=== PATIENT | female | born 1990 | race Caucasian/White ===

== ENCOUNTER 2017-08-01 15:52 | Outpatient (RCR) | payer BC | END 2017-08-30 | LOC: M PT 15:52 | DX: Z51.89 Encounter for other specified aftercare (principal); M53.3 Sacrococcygeal disorders, not elsewhere classified; M54.42 Lumbago with sciatica, left side ==

== ENCOUNTER 2017-09-05 12:32 | Outpatient (RCR) | payer BC | END 2017-09-29 | LOC: M PT 12:32 | DX: Z51.89 Encounter for other specified aftercare (principal); M54.42 Lumbago with sciatica, left side; M53.3 Sacrococcygeal disorders, not elsewhere classified | CPT/HCPCS: 97110 ==

== ENCOUNTER 2019-10-08 12:42 | Emergency (ER) | payer BC, MEDICAID, OTHER ==
[~2019-10-08] VITALS: Ht 160 cm; Wt 74.9 kg
[2019-10-08] MEDS ORDERED: DICL50TAB PO (12:53)
[2019-10-08] MEDS ORDERED: METH1TAB40 PO (12:53)
[2019-10-08] MEDS ORDERED: GABA-843 PO (12:53)
[2019-10-08] MEDS ORDERED: DOXY100C37 PO (12:54)
[2019-10-08] MEDS ORDERED: methylPREDNISolone 125MG 2ML VIAL IM ONE (13:45)
[2019-10-08] MEDS ORDERED: ALBUTEROL 90 MCG/ACT 8GM HFA INHALER INH ONE (13:45)
[2019-10-08] MEDS ORDERED: NORCO, ANEXSIA 5/325MG TABLET (HYDROcodone/ACETAMINOPHEN) PO ONE (13:45)
[2019-10-08] MEDS ORDERED: LIDOCAINE 5% (LIDODERM) PATCH TD ONE (13:45)
[2019-10-08] MEDS ORDERED: ONDANSETRON 4MG/2ML VIAL IV ONE (19:45)
[2019-10-08] MEDS ORDERED: MORPHINE 4 MG/ML 1ML VIAL/SYRINGE (J2270) IV ONE (19:45)
[2019-10-08] MEDS ORDERED: NS 1,000 ML IV SCH (20:00)
[2019-10-08 20:38] LABS: HCG, SERUM QUALITATIVE NEGATIVE (NEGATIVE)
[2019-10-08] MEDS ORDERED: **NOTE PATIENT COMMENT** MISC XX SCH (21:00)
[2019-10-08 22:40] VITALS: BP 125/81
--- NOTE | 2019-10-09 10:21 | REP ---
The MRI lumbar spine: 10/08/2019. Indication: Low back pain. Technique: Multiplanar short and long TR sequences of the lumbar spine were performed without IV Gadolinium. Comparison: None. Findings: There is straightening of the lumbar lordosis. No worrisome marrow or cord signal abnormalities are present. Disc dessication is present at L3/L4 and L4/L5. There is a transitional lumbosacral segment with sacralization of the L5 vertebral body. L1/L2 and L2/L3: Unremarkable. L3/L4: There is a posterior central annular fissure without maninder disc herniation. Mild diffuse disc bulge is present with mild recess and neural foraminal narrowing. L4/L5: There is a posterior central/left paracentral disc extrusion superimposed on a diffuse disc bulge with approximately 6 mm of caudal migration. There is severe left greater than right recess narrowing. Bilateral facet arthropathy is present. There is mild to moderate bilateral neural foraminal narrowing. L5/S1: Unremarkable. Impression: L4/L5 disc herniation as described with significant spinal canal narrowing. L3/L4 posterior central annular fissure and additional degenerative sequelae as described. Electronically Signed by Jamie Hooks DO 10/09/2019 10:14 A
== END 2019-10-08 22:45 | disposition short-term general hospital (02) ==
LOC: M ED 12:42
DX: G83.4 Cauda equina syndrome (principal); M51.26 Other intervertebral disc displacement, lumbar region; M54.81 Occipital neuralgia; J45.909 Unspecified asthma, uncomplicated; F17.290 Nicotine dependence, other tobacco product, uncomplicated; Z79.899 Other long term (current) drug therapy; Z79.2 Long term (current) use of antibiotics
CPT/HCPCS: 72148; 84703; 96361; 96372; 96374; 96375; 99284; J2270; J2405; J2930

== ENCOUNTER → 2020-09-14 | Outpatient (CLI) | payer OTHER ==
[~2020-09-14] MED LIST: DICL50TAB PO; DOXY1CAP62 PO; GABA-282 PO; METH-1164 PO
--- NOTE | 2020-09-18 00:39 | ECWPNPC ---
PATIENT NAME: MONICA PAREDES : 1990 GENDER: FEMALE VISIT DATE: 09/14/2020 DISCHARGE DATE: 09/14/20 1406 VISIT LOCKED DATE TIME: PHYSICIAN: PHILLIP JASSO RESOURCE: PHILLIP JASSO REASON FOR APPOINTMENT 1. LEFT SI INJECTS,FACET OR TRIGGER POINT INJ HISTORY OF PRESENT ILLNESS DEPRESSION SCREENING: PHQ-2 (2015 EDITION) LITTLE INTEREST OR PLEASURE IN DOING THINGS?NOT AT ALL FEELING DOWN, DEPRESSED, OR HOPELESS?NOT AT ALL TOTAL SCORE0 GENERAL: 29-YEAR-OLD FEMALE HERE PER REFERRAL OF ANDREW DALE TO EVALUATE PERSISTENT LEFT GREATER THAN RIGHT LOW BACK PAIN WITH LEFT LEG RADICULAR SYMPTOMS. STATES PAIN BEGAN IN JULY 2020 AFTER DOG JUMPED ON HER BACK. SHE WAS DOING WELL AFTER LUMBAR SURGERY IN OCTOBER 2019 UNTIL THIS INCIDENT. STATES PHYSICAL THERAPY HAS BEEN SOMEWHAT HELPFUL. CONTINUES TO HAVE A LOT OF LEFT LOW BACK AND LEG PAIN SINCE INJURY. REVIEWED MRI OF THE LS-SPINE. DISCUSSED TREATMENT PLAN. DENIES RECENT FEVER OR ILLNESS OR SUDDEN WEIGHT LOSS. DENIES BOWEL OR BLADDER INCONTINENCE. DENIES SADDLE PARESTHESIAS. - - - -. FALL RISK SCREENING: SCREENING ONE FALL REPORTED IN THE LAST YEAR WITHOUT INJURY. PATIENT DID NOT SEEK IMMEDIATE MEDICAL TREATMENT.. PAIN SCREENING: PATIENT HAS A COMPLAINT OF ACUTE OR CHRONIC PAIN :YES LOCATION OF PAIN:LOW BACK, LEFT HIP, LEG(S) INTENSITY OF PAIN (SCALE OF 1 TO 10):2 AVERAGE 2. WITH ACTIVITY AT THE END OF THE EVENING, IT GETS HIGH 4. WHAT DOES YOUR PAIN FEEL LIKE:CONTINOUS, SHARP, STABBING, SHOOTING DURATION:CONTINOUS, CONSTANT, AWAKENS FROM SLEEP PAIN IS INCREASED BY:ACTIVITIES, PROLONGED STANDING PAIN IS DECREASED BY:USE OF PAIN MEDICATIONS LAYING FLAT, REPOSITIONING NURSING NOTE: - - - -. PAIN CENTER INTAKE QUESTIONS: DO YOU HAVE A HISTORY OF MRSA? :NO DO YOU TAKE A BLOOD THINNERS? :NO DO YOU HAVE ANY BLEEDING DISORDERS? :NO ANY NEW NUMBNESS OR WEAKNESS IN YOUR LEGS OR ARMS? :YES LEFT LEG WEAKNESS ANY PACEMAKER,DEFIBRILLATOR, OR DORSAL COLUMN STIMULATOR? :NO DO YOU HAVE ANY RASHES OR OPEN SORES? :NO ARE YOU ALLERGIC TO IV DYE? :NO ARE YOU DIABETIC? :NO ANY NEW PROBLEMS WITH YOUR MEDICATIONS? :NO HAVE YOU RECEIVED A VACCINE IN THE PAST 30 DAYS? :YES SECOND COVID 08/18/2020 DO YOU PLAN TO RECEIVE A VACCINE IN THE NEXT 21 DAYS? :NO DO YOU NEED ANY PRESCRIPTION? :NO DO YOU TAKE ANY IMMUNOSUPPRESSIVE MEDICATIONS? :NO IS THERE A CHANCE YOU COULD BE ? :NO ARE YOU BREAST FEEDING? :NO CURRENT MEDICATIONS TAKING GABAPENTIN 300 MG CAPSULE 1 CAPSULE ORALLY TWICE DAILY TAKING PAROXETINE HCL 30 MG TABLET 2 TABLET IN THE MORNING ORALLY ONCE A DAY TAKING WELLBUTRIN 75MG ORALLY ONCE DAILY MEDICATION LIST REVIEWED AND RECONCILED WITH THE PATIENT PAST MEDICAL HISTORY ASTHMA ANXIETY MIGRAINES CAUDA EQUINA SYNDROME RADICULOPATHY LUMBAR SACROILLITIS ALLERGIES MEDICAL TAPE: RASH - SIDE EFFECTS SURGICAL HISTORY LUMBAR DISCECTOMY 10/2019 LEEP 05/05/2019 GALLBLADDER REMOVAL AGE 16 WISDOM TOOTH EXTRACTION 2015 FAMILY HISTORY FATHER: ALIVE, DIAGNOSED WITH HYPERTENSION MOTHER: ALIVE, HYPERLIPIDEMIA, ARTHRITIS SIBLINGS: ALIVE SON(S): ALIVE 2 BROTHER(S) , 1 SISTER(S) - HEALTHY. 1 SON(S) - HEALTHY. SOCIAL HISTORY GENERAL: TOBACCO USE ARE YOU A:CURRENT SMOKER ARE YOU INTERESTED IN QUITTING?READY TO QUIT PREVIOUS QUIT ATTEMPTS?YES, MORE THAN 6 MONTHS AGO. COUNSELED THE PATIENT ON TOBACCO USE, CESSATION [id number]/15/2021 HOW MANY CIGARETTES A DAY DO YOU SMOKE?6-10 LATEX QUESTIONNAIRE LATEX ALLERGY : HAVE YOU EVER DEVELOPED ANY TYPE OF REACTION AFTER HANDLING LATEX PRODUCTS SUCH RUBBER GLOVES, CONDOMS, DIAPHRAGMS, BALLOONS, SOCKS, OR UNDERWEAR?NO LATEX ALLERGY : HAVE YOU EVER DEVELOPED ANY TYPE OF REACTION DURING OR AFTER DENTAL APPOINTMENT, VAGINAL/RECTAL EXAMINATION, SURGICAL PROCEDURE, OR ANY OTHER EXPOSURE?NO LATEX RISK : HAVE YOU EVER HAD ANY DIFFICULTY BREATHING OR HIVES AFTER EATING OR HANDLING ANY FRUITS, OR VEGETABLES; SUCH KIWI, BANANAS, STONE FRUITS, OR CHESTNUTSNO LATEX RISK : DO YOU HAVE A PREVIOUS PERSONAL HISTORY OF MORE THAN NINE SURGERIES, SPINA BIFIDA, OR REPEATED CATHERIZATIONS? NO LATEX RISK : ARE YOU FREQUENTLY EXPOSED TO LATEX PRODUCTS IN YOUR OCCUPATION?NO DATE ASKED : 09/14/2020 ALCOHOL USE: OCCASIONAL- ONCE A MONTH. RECREATIONAL DRUG USE DRUG USE?NO LANGUAGE LANGUAGES SPOKEN:[place] EDUCATION LEVEL OF EDUCATION:GRADUATE LEARNING BARRIERS / SPECIAL NEEDS BARRIERS TO LEARNING?NO HEARING IMPAIRED?NO VISION IMPAIRED?YES CONTACT LENSES COGNITIVELY IMPAIRED?NO READINESS TO LEARN?YES LEARNING PREFERENCES?NO LEARNING CAPABILITIES PRESENT?NO EMOTIONAL BARRIERS?YES ANXIETY SPECIAL DEVICES?NO ROTOR WINDER NEEDED?NO HOSPITALIZATION/MAJOR DIAGNOSTIC PROCEDURE SURGERY RELATED REVIEW OF SYSTEMS CONSTITUTIONAL: ANY RECENT FEVER NO . CHILLS NO . WEIGHT CHANGE OF UNKNOWN REASONS NO . GASTROENTEROLOGY: NEW UNEXPLAINABLE CHANGES IN BOWEL CONTROL NO . CONSTIPATION NO . GENITOURINARY: ANY NEW CHANGE IN BLADDER CONTROL? NO . NEUROLOGY: NEW ONSET DIZZINESS OR NEUROLOGICAL CHANGES NOT MENTIONED NO . NEW NUMBNESS OR PAIN PATTERNS NOT MENTIONED AND PERTINENT TO TODAY'S VISIT NO . CARDIOLOGY: NEW CHEST PRESSURE NO . PATIENT DENIES NO . RESPIRATORY: UNEXPLAINABLE COUGH NO . NEW SHORTNESS OF BREATH NO . VITAL SIGNS WT 163.8 LBS, HT 53 IN, BMI 40.99 INDEX, BP 124/69 MM HG, HR 95 /MIN, RR 18 /MIN, TEMP 97.8 F, OXYGEN SAT % 96%, SAFE IN ENV? (Y/N) YES, NA INITIALS AW 1302, REVIEWED BY: DARRELL CHRISTINE MA. EXAMINATION GENERAL EXAMINATION: GENERAL ALERT,NO DISTRESS . PSYCH AFFECT NORMAL . LUNGS: LUNG SOUNDS ARE CLEAR . HEART: HEART RATE REGULAR . MUSCULOSKELETAL:SLIGHT WEAKNESS NOTED OVER LEFT LEG.. LUMBAR: TENDERNESS LEFT SIJ .POSITIVE SUNDEEP TESTING OVER LEFT LEG. NEUROLOGIC EXAM:NORMAL SENSATION TO LIGHT TOUCH LOWER EXTREMITIES . DIAGNOSTIC TESTS REVIEWEDMRI L/S SPINE-10/08/2019. ASSESSMENTS SACROILIITIS, NOT ELSEWHERE CLASSIFIED - M46.1 (PRIMARY) TREATMENT SACROILIITIS, NOT ELSEWHERE CLASSIFIED SALINE LOCK (ORDERED FOR 09/28/2020) MEDICATION: VALIUM TAB 5MG ORALLY (DIAZEPAM) (ORDERED FOR 09/28/2020) MEDICATION: OXYCODONE HCL TAB 5MG ORALLY (ORDERED FOR 09/28/2020) NOTES: LEFT SACROILIAC JOINT BLOCK. CLINICAL NOTES: PREPROCEDURE AND PROCEDURE INFORMATION PRINTED AND PROVIDED TO PATIENT. PATIENT VERBALIZED AN UNDERSTANDING. RAFAEL CHRISTINE MA. PROCEDURE CODES [id number] ESTABILISHED PATIENT [facility] CHARGE DISPOSITION & COMMUNICATION FOLLOW UP POST (REASON: LEFT SACROILIAC JOINT BLOCK ) ELECTRONICALLY SIGNED BY CAROLE ARGUELLO ON 09/17/2020 AT 10:32 AM EDT DISCLAIMER : THIS IS A VISIT SUMMARY EXTRACTED FROM THE [employer] CHART. IT IS NOT A COPY OF THE [employer] PROGRESS NOTE. [facility]
== END ==
LOC: M PAIN 13:00
PROVIDERS: ATTEND Nurse Practitioner Family
DX: M46.1 Sacroiliitis, not elsewhere classified (principal); J45.909 Unspecified asthma, uncomplicated; G43.909 Migraine, unspecified, not intractable, without status migrainosus; Z86.59 Personal history of other mental and behavioral disorders; F17.210 Nicotine dependence, cigarettes, uncomplicated; Z91.09 Other allergy status, other than to drugs and biological substances; E66.01 Morbid (severe) obesity due to excess calories; Z68.41 Body mass index [BMI] 40.0-44.9, adult; Z79.899 Other long term (current) drug therapy

== ENCOUNTER → 2020-10-07 | Outpatient (CLI) | payer OTHER | LOC: M LABSMTC 10:59 | PROVIDERS: ATTEND Anesthesiology | DX: Z11.52 Encounter for screening for COVID-19 (principal) ==

== ENCOUNTER → 2020-10-12 | Outpatient (CLI) | payer OTHER ==
[~2020-10-12] MED LIST changes: +BUPIVACAINE HCL 0.25% 30ML VIAL As Ordered ONE; +ISOVUE-M 300 61% 15ML VIAL As Ordered ONE; +LIDOCAINE 1% SDV 30ML VIAL As Ordered ONE; +TRIAMCINOLONE ACETONIDE SUSP 40 MG/ML VIAL (J3301) As Ordered ONE; +diazePAM 5MG TABLET As Ordered ONE; +diphenhydrAMINE 25MG CAP As Ordered ONE; +oxyCODONE 5MG TAB As Ordered ONE
--- NOTE | 2020-10-12 14:59 | REP ---
INDICATION: LEFT SACROILIAC JOINT BLOCK. COMPARISON: None. TECHNIQUE: Two views. 25.9 seconds of fluoroscopy time is reported. FINDINGS: A sequence of 2 last image hold fluoroscopically obtained spot radiographs of the left SI joint document needle position and contrast injection associated with injection procedure. IMPRESSION: Procedural imaging. <Electronically signed by Edi Morillo > 10/12/20 [id number]
--- NOTE | 2020-10-16 04:48 | ECWPNPC ---
PATIENT NAME: MONICA PAREDES : 1990 GENDER: FEMALE VISIT DATE: 10/12/2020 DISCHARGE DATE: 10/12/20 1420 VISIT LOCKED DATE TIME: PHYSICIAN: JEAN CARLOS FERGUSON MD RESOURCE: JEAN CARLOS FERGUSON MD REASON FOR APPOINTMENT 1. LEFT SACROILIAC JOINT BLOCK HISTORY OF PRESENT ILLNESS FALL RISK SCREENING: SCREENING ONE FALL REPORTED IN THE LAST YEAR WITHOUT INJURY, PATIENT DID NOT SEEK IMMEDIATE MEDICAL TREATMENT. PATIENT REPORTS 07/2020 AND 07/2020, DOG JUMPING ON BACK. . PAIN SCREENING: PATIENT HAS A COMPLAINT OF ACUTE OR CHRONIC PAIN :YES LOCATION OF PAIN:LOW BACK, LEFT HIP, LEG(S) INTENSITY OF PAIN (SCALE OF 1 TO 10):4 AVERAGE 3, WITH ACTIVITY AT THE END OF THE EVENING, IT GETS HIGH 6. WHAT DOES YOUR PAIN FEEL LIKE:SHARP, TENDER, SHOOTING, OTHER "FEELS LIKE A PIECE OF SHEET METAL IS BEING SLID ACROSS MY BACK." DURATION:CONTINOUS, AWAKENS FROM SLEEP PAIN IS INCREASED BY:ACTIVITIES, PROLONGED STANDING PAIN IS DECREASED BY:USE OF PAIN MEDICATIONS LAYING FLAT, REPOSITIONING PLAN/GOALS/TREATMENT/INTERVENTION/FOLLOW UP:SEE PLAN NURSING NOTE: POST PROCEDURE, DR FERGUSON ANNOUNCED THAT THE PT CAN GO HOME, Hyun HOBBS WAS NOT AVAILABLE TO SCRIBE AT THE TIME. Mike BOWSER LACING STRING CUTTER. PAIN CENTER INTAKE QUESTIONS: DO YOU HAVE A HISTORY OF MRSA? :NO DO YOU TAKE A BLOOD THINNERS? :NO DO YOU HAVE ANY BLEEDING DISORDERS? :NO ANY NEW NUMBNESS OR WEAKNESS IN YOUR LEGS OR ARMS? :YES LEFT LEG WEAKNESS ANY PACEMAKER,DEFIBRILLATOR, OR DORSAL COLUMN STIMULATOR? :NO DO YOU HAVE ANY RASHES OR OPEN SORES? :NO ARE YOU ALLERGIC TO IV DYE? :NO ARE YOU DIABETIC? :NO ANY NEW PROBLEMS WITH YOUR MEDICATIONS? :NO HAVE YOU RECEIVED A VACCINE IN THE PAST 30 DAYS? :NO DO YOU PLAN TO RECEIVE A VACCINE IN THE NEXT 21 DAYS? :NO DO YOU TAKE ANY IMMUNOSUPPRESSIVE MEDICATIONS? :NO ANY HISTORY OF SEIZURES? :NO ANY HISTORY OF CARDIAC ISSUES OR EVENTS? :NO DO YOU HAVE ANY KIDNEY OR LIVER DISEASE? :NO DO YOU HAVE SLEEP APNEA? :NO ANY RECENT HEAD INJURY? :NO DO YOU HAVE ANY NEW INFECTIONS? :NO IS THERE A CHANCE YOU COULD BE ? :NO ARE YOU BREAST FEEDING? :NO WHEN DID YOU LAST EAT? : 10/11/2020 2300 WHEN DID YOU LAST DRINK? : 10/12/20202029 WHAT DID YOU LAST DRINK? : ISIDRO NAME OF PERSON DRIVING YOU HOME? : MIRA (CAITLYN) DO YOU HAVE ANY OTHER QUESTIONS OR CONCERNS? : NO CURRENT MEDICATIONS TAKING GABAPENTIN 300 MG CAPSULE 1 CAPSULE ORALLY THREE TIMES A DAY, NOTES: 10/12/2020 06 TAKING PAROXETINE HCL 30 MG TABLET 2 TABLET IN THE MORNING ORALLY ONCE A DAY, NOTES: 10/12/2020 08 TAKING WELLBUTRIN 75MG ORALLY TWICE A DAY, NOTES: 10/12/2020 08 TAKING VITAMIN D (CHOLECALCIFEROL) 50 MCG (2000 UT) CAPSULE 1 CAPSULE ORALLY ONCE A DAY, NOTES: 10/12/2020 08 TAKING ALBUTEROL SULFATE HFA 108 (90 BASE) MCG/ACT AEROSOL SOLUTION INHALE 2 PUFFS BY MOUTH EVERY 4 HOURS NEEDED INHALATION NOT-TAKING METHOCARBAMOL 500 MG TABLET TAKE ONE AND ONE HALF TABLETS BY MOUTH EVERY 6 HOURS ORAL MEDICATION LIST REVIEWED AND RECONCILED WITH THE PATIENT PAST MEDICAL HISTORY ASTHMA ANXIETY MIGRAINES CAUDA EQUINA SYNDROME RADICULOPATHY LUMBAR SACROILLITIS ALLERGIES MEDICAL TAPE: RASH - SIDE EFFECTS SURGICAL HISTORY LUMBAR DISCECTOMY 10/2019 LEEP 05/05/2019 GALLBLADDER REMOVAL AGE 16 WISDOM TOOTH EXTRACTION 2015 SOCIAL HISTORY GENERAL: TOBACCO USE ARE YOU A:CURRENT SMOKER ARE YOU INTERESTED IN QUITTING?READY TO QUIT PREVIOUS QUIT ATTEMPTS?YES, MORE THAN 6 MONTHS AGO. COUNSELED THE PATIENT ON TOBACCO USE, CESSATION [id number]/12/2021 HOW MANY CIGARETTES A DAY DO YOU SMOKE?6-10 LATEX QUESTIONNAIRE LATEX ALLERGY : HAVE YOU EVER DEVELOPED ANY TYPE OF REACTION AFTER HANDLING LATEX PRODUCTS SUCH RUBBER GLOVES, CONDOMS, DIAPHRAGMS, BALLOONS, SOCKS, OR UNDERWEAR?NO LATEX ALLERGY : HAVE YOU EVER DEVELOPED ANY TYPE OF REACTION DURING OR AFTER DENTAL APPOINTMENT, VAGINAL/RECTAL EXAMINATION, SURGICAL PROCEDURE, OR ANY OTHER EXPOSURE?NO DATE ASKED : 09/14/2020 LATEX RISK : HAVE YOU EVER HAD ANY DIFFICULTY BREATHING OR HIVES AFTER EATING OR HANDLING ANY FRUITS, OR VEGETABLES; SUCH KIWI, BANANAS, STONE FRUITS, OR CHESTNUTSNO LATEX RISK : DO YOU HAVE A PREVIOUS PERSONAL HISTORY OF MORE THAN NINE SURGERIES, SPINA BIFIDA, OR REPEATED CATHERIZATIONS? NO LATEX RISK : ARE YOU FREQUENTLY EXPOSED TO LATEX PRODUCTS IN YOUR OCCUPATION?NO ALCOHOL USE: OCCASIONAL- ONCE A MONTH. RECREATIONAL DRUG USE DRUG USE?NO LANGUAGE LANGUAGES SPOKEN:SETS[place] EDUCATION LEVEL OF EDUCATION:GRADUATE LEARNING BARRIERS / SPECIAL NEEDS BARRIERS TO LEARNING?NO HEARING IMPAIRED?NO VISION IMPAIRED?YES CONTACT LENSES COGNITIVELY IMPAIRED?NO READINESS TO LEARN?YES LEARNING PREFERENCES?NO LEARNING CAPABILITIES PRESENT?NO EMOTIONAL BARRIERS?YES ANXIETY SPECIAL DEVICES?NO SQL PROGRAMMER ANALYST NEEDED?NO HOSPITALIZATION/MAJOR DIAGNOSTIC PROCEDURE SURGERY RELATED VITAL SIGNS WT 162.2 LBS, HT 53 IN, BMI 40.59 INDEX, BP 120/72 MM HG, HR 72 /MIN, RR 18 /MIN, TEMP 98.6 F, OXYGEN SAT % 97%, SAFE IN ENV? (Y/N) YES, NA INITIALS AW 1121, REVIEWED BY: Deny GLASS RN. EXAMINATION GENERAL EXAMINATION: THE PATIENT IS ALERT, ORIENTED TIMES THREE AND COOPERATIVE. LUNGS HAVE SOME WHEEZES BUT THE PATIENT EXPRESSED THAT IS NORMAL FOR HER AND WE AGREE ON MOVING FORWARD. HEART SHOWS REGULAR RHYTHM, NO MURMURS AND NO GALLOPS. ASSESSMENTS SACROILIITIS, NOT ELSEWHERE CLASSIFIED - M46.1 (PRIMARY) TREATMENT SACROILIITIS, NOT ELSEWHERE CLASSIFIED [facility] FLUORO GUIDANCE (PAIN)[id number] MED: PAIN BENADRYL TAB 25MG ORALLY DIPHENHYDRAMINEARTUR BOWSER 10/12/2020 12:03:13 PM > VERIFIED MAEVE RANDALL 10/12/2020 12:05:31 PM > ADMINISTERED MEDICATION: PAIN VALIUM TAB 5MG ORALLY (DIAZEPAM)JOHNATHON ACOSTA 10/12/2020 11:37:26 AM > VERIFIED MAEVE RANDALL 10/12/2020 11:46:13 AM > 1140 ADMINISTERED DILEONARDO,YOUNG 10/12/2020 11:55:35 AM > SECOND DOSE ORDERED, VERIFIED BY ARTUR MASTERS 10/12/2020 12:03:37 PM > SECOND DOSE VERIFIED MAEVE RANDALL 10/12/2020 12:05:53 PM > 2 ND DOSE ADMINISTERED MEDICATION: PAIN OXYCODONE HCL TAB 5MG ORALLY JOHNATHON ACOSTA 10/12/2020 11:37:46 AM > VERIFIED MAEVE RANDALL 10/12/2020 11:46:36 AM > 1140 ADMINISTERED SALINE MAEVE SEN 10/12/2020 12:01:00 PM > #22 SL STARTED X 1 ATTMEPT BY THIS PERSONAL PROTECTION SPECIALIST IN LEFT AC. SITE ASYMPTOMATIC, FLUSHES WELL. PATIENT TOLERATED PROCEDURE WELL. OTHERS NOTES: 10/11/20 PAT COMPLETED. MICKEY, LACING STRING CUTTER. PROCEDURES PAIN NURSING RECORD PROCEDURE IN ROOM 1305, PHYSICIAN IN ROOM 1344, START 1347, FINISH 1349, PHYSICIAN OUT OF ROOM 1350, OUT OF ROOM 1400, ECG NORMAL SINUS, PATIENT SHIELDED YES, SAFETY STRAP YES, PREP CHLOROPREP EWinsome BOWSER RN, DRESSING TEGADERM DR. FERGUSON LOC: 1. ALERT, ORIENTED, ARTUR BOWSER 10/12/2020 1:48:16 PM > RESP: 1. REGULAR, NO DYSPNEA, ARTUR BOWSER 10/12/2020 1:48:19 PM > COLOR: 1. PINK, ARTUR BOWSER 10/12/2020 1:48:23 PM > SKIN: 1. WARM, DRY, ARTUR BOWSER 10/12/2020 1:48:26 PM > POSITION: 1. PRONE, ARTUR BOWSER 10/12/2020 1:19:36 PM > VITALS: 1155 P74 02 99% R18 BP 114/63 AW BASIL HUNTLEY 10/12/2020 12:10:32 PM >HR 66 O2 97% BP 111/64 BASIL HUNTLEY 10/12/2020 12:29:31 PM > HR 73 O2 97% BP 101/69 BASIL HUNTLEY 10/12/2020 12:42:25 PM > HR 62 O2 98% BP 101/63 1240 P71 0297 BP125/61 AW 131/86, 59, 16, 99%, ARTUR BOWSER 10/12/2020 1:19:55 PM > 119/78, 54, 16, 98% ARTUR BOWSER 10/12/2020 1:30:22 PM > , 119/78, 51, 16, 97%, ARTUR BOWSER 10/12/2020 1:48:46 PM > 107/59, 53, 16, 97%, ARTUR BOWSER 10/12/2020 2:05:50 PM > NOTES Scar BOWSER RN, ARTUR BOWSER 10/12/2020 1:20:00 PM > COMPLETION OF PROCEDURE APPOINTMENT: POST PAIN 0, DRESSING SITE DRY AND INTACT, IV DISCONTINUED, SITE CLEAR, CATHETER INTACT, GAIT STEADY, TEACHING COMPLETED, PATIENT ACKNOWLEDGES UNDERSTANDING YES, PROCEDURE APPOINTMENT COMPLETED AT 1420 PRE PROCEDURE DIAGNOSIS SACROILITIS, SACROILIAC JOINT DYSFUNCTION POST PROCEDURE DIAGNOSIS SACROILIITIS, SACROILIAC JOINT DYSFUNCTION PROCEDURE LEFT SACROILIAC JOINT BLOCK SURGEON DR. JEAN CARLOS FERGUSON A P MANAGER NONE ANESTHESIA LOCAL PRE PROCEDURE NOTE THE PATIENT HAS A HISTORY OF CHRONIC LOW BACK PAIN. I EVALUATED THE PATIENT AND REVIEWED THE CHART. I WENT OVER THE RISKS, BENEFITS AND ALTERNATIVES ASSOCIATED WITH THIS PROCEDURE. THE PATIENT WOULD LIKE TO PROCEED AND GIVES CONSENT TO PERFORM THE PROCEDURE. THE PATIENT DENIES UNEXPLAINABLE WEIGHT LOSS, FEVER, CHILLS OR NEW CHANGES IN URINARY OR BOWEL CONTROL. THE PATIENT IS COVID-19 NEGATIVE. DESCRIPTION OF PROCEDURE THE PATIENT WAS BROUGHT TO THE PROCEDURE ROOM AND PLACED IN THE PRONE POSITION. THE LUMBOSACRAL AREA WAS CLEANED WITH CHLORAPREP SOLUTION AND DRAPED ASEPTICALLY. THE PROCEDURE WAS DONE UNDER STERILE CONDITIONS. A TIMEOUT WAS PERFORMED WHERE THE CONSENTED SITE WAS VERIFIED WITH EVERYONE IN THE ROOM UNDER FLUOROSCOPIC GUIDANCE, THE TARGET POINT WAS SELECTED AT THE LOWER BORDER OF THE LEFT SACROILIAC JOINT. TARGET POINT WAS SELECTED AFTER MEDIAL ROTATION AND TILT OF THE MAGNIFIER OR THE C-ARM. I CONFIRMED AGAIN THE SITE OF TARGET. LIDOCAINE 0.5% WAS USED TO NUMB THE SKIN AND THE SUBCUTANEOUS TISSUE BELOW IT. SPINAL NEEDLE, 22-GAUGE, WAS ADVANCED UNDER FLUOROSCOPIC GUIDANCE AND FOLLOWING PATIENT FEEDBACK UNTIL THE TARGET WAS TOUCHED. THE POSITION OF THE NEEDLE WAS VERIFIED WITH AP AND OBLIQUE VIEWS. AFTER PROPER POSITION OF THE NEEDLE WAS ACHIEVED, ISOVUE-M DYE 30%, 0.1 ML, WAS INJECTED SHOWING ADEQUATE SPREAD OF THE DYE. KENALOG 40 MG WAS INJECTED. THEN, A SOLUTION OF 3.0 ML OF BUPIVACAINE 0.125% WAS USED TO FLUSH THE NEEDLE. THE MEDICATIONS WERE VERIFIED WITH THE NURSE. THERE WAS NO EVIDENCE OF BLOOD, PARESTHESIA OR CEREBROSPINAL FLUID DURING THE PROCEDURE. THE PATIENT WAS SENT TO THE RECOVERY ROOM. THE PATIENT WAS MOVING THE EXTREMITIES AND DOING WELL. THERE WERE NO COMPLICATIONS DURING THE PROCEDURE. ESTIMATED BLOOD LOSS WAS LESS THAN 5 ML. FLUOROSCOPIC TIME WAS 25 SECONDS. POST PROCEDURE NOTE THE PATIENT WILL BE SEEN IN A FOLLOW UP IN THE NEXT FEW WEEKS. I AM LOOKING FOR LONG LASTING RELIEF FOR THE PATIENT WITH THIS INTERVENTION. INSTRUCTIONS WERE GIVEN, QUESTIONS WERE ANSWERED AND THE PATIENT EXPRESSED UNDERSTANDING AND AGREES WITH THE PAIN. I, YOUNG CAMPBELL, DOCUMENTED THE ABOVE INFORMATION ACTING A SCRIBE FOR DR. FERGUSON. I HAVE REVIEWED THE ABOVE DOCUMENT WRITTEN BY YOUNG CAMPBELL, RETAIL MAINTENANCE TECHNICIAN, AND I VERIFY THAT IT IS ACCURATE. PROCEDURE CODES 08499 INJECT SACROILIAC JOINT, MODIFIERS: LT DISPOSITION & COMMUNICATION FOLLOW UP FOLLOW UP WITH MECHANICAL SERVICE TECHNICIAN (REASON: POST LEFT SACROILIAC JOINT BLOCK) ELECTRONICALLY SIGNED BY JEAN CARLOS FERGUSON MD, ON 10/15/2020 AT 09:00 AM EDT DISCLAIMER : THIS IS A VISIT SUMMARY EXTRACTED FROM THE [employer] CHART. IT IS NOT A COPY OF THE [email or web address] PROGRESS NOTE. AKANKSHA
== END ==
LOC: M PAIN 11:20
PROVIDERS: ATTEND Anesthesiology
DX: M46.1 Sacroiliitis, not elsewhere classified (principal); J45.909 Unspecified asthma, uncomplicated; F41.9 Anxiety disorder, unspecified; G43.909 Migraine, unspecified, not intractable, without status migrainosus; G83.4 Cauda equina syndrome; M54.16 Radiculopathy, lumbar region; F17.210 Nicotine dependence, cigarettes, uncomplicated; Z79.899 Other long term (current) drug therapy; Z91.048 Other nonmedicinal substance allergy status
CPT/HCPCS: 27096; J3301; Q9967

== ENCOUNTER → 2020-10-26 | Outpatient (CLI) | payer OTHER ==
[~2020-10-26] MED LIST changes: -BUPIVACAINE HCL 0.25% 30ML VIAL As Ordered ONE; -ISOVUE-M 300 61% 15ML VIAL As Ordered ONE; -LIDOCAINE 1% SDV 30ML VIAL As Ordered ONE; -TRIAMCINOLONE ACETONIDE SUSP 40 MG/ML VIAL (J3301) As Ordered ONE; -diazePAM 5MG TABLET As Ordered ONE; -diphenhydrAMINE 25MG CAP As Ordered ONE; -oxyCODONE 5MG TAB As Ordered ONE
--- NOTE | 2020-10-28 03:07 | ECWPNPC ---
PATIENT NAME: MONICA PAREDES : 1990 GENDER: FEMALE VISIT DATE: 10/26/2020 DISCHARGE DATE: 10/26/20 1444 VISIT LOCKED DATE TIME: PHYSICIAN: PHILLIP JASSO RESOURCE: PHILLIP JASSO REASON FOR APPOINTMENT 1. POST LEFT SACROILIAC JOINT BLOCK HISTORY OF PRESENT ILLNESS GENERAL: HERE FOR POSTPROCEDURE FOLLOW-UP. HAD LEFT SACROILIAC JOINT BLOCK ON 10/12/2020. REPORTING MARKED REDUCTION IN PAIN THAT CONTINUES TODAY. STATES THAT SINCE SHE HAS HAD THE LEFT SIDE DONE HER RIGHT SIDE IS BEGINNING TO BOTHER HER AND SHE IS WONDERING IF SHE CAN HAVE THE SAME INJECTION ON HER RIGHT SIDE. SHE IS VERY HAPPY WITH THE RESULTS OF HER LEFT SIDE. REPORTING IMPROVED ACTIVITY TOLERANCE SINCE INJECTION. -. FALL RISK SCREENING: SCREENING ONE SNICE THE LAST PROCEDURE, NO MAJOR INJURIES. PAIN SCREENING: PATIENT HAS A COMPLAINT OF ACUTE OR CHRONIC PAIN :YES LOCATION OF PAIN:LOW BACK LEFT SACROILIAC INTENSITY OF PAIN (SCALE OF 1 TO 10):1 WHAT DOES YOUR PAIN FEEL LIKE:CONTINOUS, SORE DURATION:CONTINOUS, CONSTANT, ALL DAY PAIN IS INCREASED BY:OTHERS DRIVING OR SITTING PAIN IS DECREASED BY:OTHERS WALKING AROUND NURSING NOTE: -. PAIN CENTER INTAKE QUESTIONS: DO YOU HAVE A HISTORY OF MRSA? :NO DO YOU TAKE A BLOOD THINNERS? :NO DO YOU HAVE ANY BLEEDING DISORDERS? :NO ANY NEW NUMBNESS OR WEAKNESS IN YOUR LEGS OR ARMS? :YES LEFT LEG WEAKNESS ANY PACEMAKER,DEFIBRILLATOR, OR DORSAL COLUMN STIMULATOR? :NO DO YOU HAVE ANY RASHES OR OPEN SORES? :NO ARE YOU ALLERGIC TO IV DYE? :NO ARE YOU DIABETIC? :NO ANY NEW PROBLEMS WITH YOUR MEDICATIONS? :NO HAVE YOU RECEIVED A VACCINE IN THE PAST 30 DAYS? :NO DO YOU PLAN TO RECEIVE A VACCINE IN THE NEXT 21 DAYS? :NO DO YOU NEED ANY PRESCRIPTION? :NO DO YOU TAKE ANY IMMUNOSUPPRESSIVE MEDICATIONS? :NO IS THERE A CHANCE YOU COULD BE ? :NO ARE YOU BREAST FEEDING? :NO CURRENT MEDICATIONS TAKING GABAPENTIN 300 MG CAPSULE 1 CAPSULE ORALLY THREE TIMES A DAY TAKING PAROXETINE HCL 30 MG TABLET 2 TABLET IN THE MORNING ORALLY ONCE A DAY TAKING WELLBUTRIN 75MG ORALLY TWICE A DAY TAKING VITAMIN D (CHOLECALCIFEROL) 50 MCG (1999 UT) CAPSULE 1 CAPSULE ORALLY ONCE A DAY TAKING ALBUTEROL SULFATE HFA 108 (90 BASE) MCG/ACT AEROSOL SOLUTION INHALE 2 PUFFS BY MOUTH EVERY 4 HOURS NEEDED INHALATION NOT-TAKING METHOCARBAMOL 500 MG TABLET TAKE ONE AND ONE HALF TABLETS BY MOUTH EVERY 6 HOURS ORAL MEDICATION LIST REVIEWED AND RECONCILED WITH THE PATIENT PAST MEDICAL HISTORY ASTHMA ANXIETY MIGRAINES CAUDA EQUINA SYNDROME RADICULOPATHY LUMBAR SACROILLITIS SECOND COVID 08/18/2020 ALLERGIES MEDICAL TAPE: RASH - SIDE EFFECTS SOCIAL HISTORY GENERAL: TOBACCO USE ARE YOU A:CURRENT SMOKER ARE YOU INTERESTED IN QUITTING?READY TO QUIT PREVIOUS QUIT ATTEMPTS?YES, MORE THAN 6 MONTHS AGO. COUNSELED THE PATIENT ON TOBACCO USE, CESSATION [id number]/27/2021 HOW MANY CIGARETTES A DAY DO YOU SMOKE?6-10 HOW SOON AFTER YOU WAKE UP DO YOU SMOKE YOUR FIRST CIGARETTE?6-30 MIN HOW OFTEN DO YOU SMOKE CIGARETTES?EVERY DAY PATIENT COUNSELED ON THE DANGERS OF TOBACCO USE AND URGED TO QUIT:10/26/2020 LATEX QUESTIONNAIRE LATEX ALLERGY : HAVE YOU EVER DEVELOPED ANY TYPE OF REACTION AFTER HANDLING LATEX PRODUCTS SUCH RUBBER GLOVES, CONDOMS, DIAPHRAGMS, BALLOONS, SOCKS, OR UNDERWEAR?NO LATEX ALLERGY : HAVE YOU EVER DEVELOPED ANY TYPE OF REACTION DURING OR AFTER DENTAL APPOINTMENT, VAGINAL/RECTAL EXAMINATION, SURGICAL PROCEDURE, OR ANY OTHER EXPOSURE?NO LATEX RISK : HAVE YOU EVER HAD ANY DIFFICULTY BREATHING OR HIVES AFTER EATING OR HANDLING ANY FRUITS, OR VEGETABLES; SUCH KIWI, BANANAS, STONE FRUITS, OR CHESTNUTSNO LATEX RISK : DO YOU HAVE A PREVIOUS PERSONAL HISTORY OF MORE THAN NINE SURGERIES, SPINA BIFIDA, OR REPEATED CATHERIZATIONS? NO LATEX RISK : ARE YOU FREQUENTLY EXPOSED TO LATEX PRODUCTS IN YOUR OCCUPATION?NO DATE ASKED : 10/26/2020 ALCOHOL USE: OCCASIONAL- ONCE A MONTH. 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 CHILLS NO . WEIGHT CHANGE OF UNKNOWN REASONS NO . GASTROENTEROLOGY: NEW UNEXPLAINABLE CHANGES IN BOWEL CONTROL NO . CONSTIPATION NO . GENITOURINARY: ANY NEW CHANGE IN BLADDER CONTROL? NO . NEUROLOGY: NEW ONSET DIZZINESS OR NEUROLOGICAL CHANGES NOT MENTIONED NO . NEW NUMBNESS OR PAIN PATTERNS NOT MENTIONED AND PERTINENT TO TODAY'S VISIT NO . CARDIOLOGY: NEW CHEST PRESSURE NO . PATIENT DENIES NO . RESPIRATORY: UNEXPLAINABLE COUGH NO . NEW SHORTNESS OF BREATH NO . VITAL SIGNS WT 159.6 LBS, HT 53 IN, BMI 39.94 INDEX, BP 131/72 MM HG, HR 79 /MIN, RR 18 /MIN, TEMP 98 F, OXYGEN SAT % 98%, SAFE IN ENV? (Y/N) YES, NA INITIALS SC 14:05Olga.GISELL REYNA. EXAMINATION GENERAL EXAMINATION: GENERAL ALERT,NO DISTRESS . PSYCH AFFECT NORMAL . LUNGS: LUNG SOUNDS ARE CLEAR . HEART: HEART RATE REGULAR . MUSCULOSKELETAL:SLIGHT WEAKNESS NOTED OVER LEFT LEG.. LUMBAR:TENDERNESS OVER RIGHT SIJ .POSITIVE SUNDEEP TESTING OVER RIGHT LEG. NEUROLOGIC EXAM:NORMAL SENSATION TO LIGHT TOUCH LOWER EXTREMITIES . DIAGNOSTIC TESTS REVIEWEDMRI L/S SPINE-10/08/2019. ASSESSMENTS OTHER CHRONIC PAIN - G89.29 (PRIMARY) SACROILIITIS, NOT ELSEWHERE CLASSIFIED - M46.1 TREATMENT OTHER CHRONIC PAIN PAIN PROCEDURE LOGDATE OF PROCEDURE1PROCEDURE:LEFT SACROILIAC JOINT BLOCKAMOUNT OF PRE SEDATEBENADRYL 25MG, VALIUM 5MG, OXYCODONE 5MGRESULT:MARKED REDUCTION IN PAIN CONTINUES TODAY MED: PAIN BENADRYL TAB 25MG ORALLY DIPHENHYDRAMINE (ORDERED FOR 11/09/2020) MEDICATION: PAIN VALIUM TAB 5MG ORALLY (DIAZEPAM) (ORDERED FOR 11/09/2020) MEDICATION: PAIN OXYCODONE HCL TAB 5MG ORALLY (ORDERED FOR 11/09/2020) NOTES: RIGHT SACROILIAC JOINT BLOCK REVIEWED PRE PROCEDURE INFORMATION, PATIENT VERBALIZED UNDERSTANDING TOAN GUIDRY PROCEDURE CODES FA211 ESTABILISHED PATIENT [facility] FACILITY CHARGE DISPOSITION & COMMUNICATION FOLLOW UP POST (REASON: RIGHT SACROILIAC JOINT BLOCK) ELECTRONICALLY SIGNED BY CAROLE ARGUELLO ON 10/27/2020 AT 01:03 PM EDT DISCLAIMER : THIS IS A VISIT SUMMARY EXTRACTED FROM THE [employer] CHART. IT IS NOT A COPY OF THE [employer] PROGRESS NOTE. AKANKSHA
== END ==
LOC: M PAIN 14:00
PROVIDERS: ATTEND Nurse Practitioner Family
DX: G89.29 Other chronic pain (principal); M46.1 Sacroiliitis, not elsewhere classified; J45.909 Unspecified asthma, uncomplicated; F41.9 Anxiety disorder, unspecified; G43.909 Migraine, unspecified, not intractable, without status migrainosus; M51.46 Schmorl's nodes, lumbar region; F17.210 Nicotine dependence, cigarettes, uncomplicated; Z79.899 Other long term (current) drug therapy; Z91.048 Other nonmedicinal substance allergy status

== ENCOUNTER → 2020-11-04 | Outpatient (CLI) | payer OTHER | LOC: M LABSMTC 10:12 | PROVIDERS: ATTEND Anesthesiology | DX: Z20.822 Contact with and (suspected) exposure to COVID-19 (principal) ==

== ENCOUNTER → 2020-11-09 | Outpatient (CLI) | payer OTHER ==
[~2020-11-09] MED LIST changes: +BUPIVACAINE HCL 0.25% 30ML VIAL As Ordered ONE; +ISOVUE-M 300 61% 15ML VIAL As Ordered ONE; +LIDOCAINE 1% SDV 30ML VIAL As Ordered ONE; +TRIAMCINOLONE ACETONIDE SUSP 40 MG/ML VIAL (J3301) As Ordered ONE; +diazePAM 5MG TABLET As Ordered ONE; +diphenhydrAMINE 25MG CAP As Ordered ONE; +oxyCODONE 5MG TAB As Ordered ONE
--- NOTE | 2020-11-09 17:12 | REP ---
INDICATION: RIGHT SACROILIAC JOINT BLOCK. COMPARISON: None. TECHNIQUE: 26.3 seconds provided for the exam. FINDINGS: There is a single image of the right sacroiliac joint which shows a needle within the inferior aspect with radiographic contrast material seen opacifying. IMPRESSION: As above <Electronically signed by Sony Mcadams > 11/09/20 0632
--- NOTE | 2020-11-13 00:58 | ECWPNPC ---
PATIENT NAME: MONICA PAREDES : 1990 GENDER: FEMALE VISIT DATE: 11/09/2020 DISCHARGE DATE: 11/09/201750 VISIT LOCKED DATE TIME: PHYSICIAN: JEAN CARLOS FERGUSON MD RESOURCE: JEAN CARLOS FERGUSON MD REASON FOR APPOINTMENT 1. RIGHT SACROILIAC JOINT BLOCK HISTORY OF PRESENT ILLNESS GENERAL: -. FALL RISK SCREENING: SCREENING : NO FALLS REPORTED IN THE LAST YEAR. PAIN SCREENING: PATIENT HAS A COMPLAINT OF ACUTE OR CHRONIC PAIN :YES LOCATION OF PAIN:LOW BACK, RIGHT HIP INTENSITY OF PAIN (SCALE OF 1 TO 10):3 WHAT DOES YOUR PAIN FEEL LIKE:CONTINOUS, SHARP DURATION:CONTINOUS PAIN IS INCREASED BY:ACTIVITIES, OTHERS PROLONGED SITTING, WALKING, RUNNING PAIN IS DECREASED BY:OTHERS STANDING AND LEANING, REST NURSING NOTE: -. PAIN CENTER INTAKE QUESTIONS: DO YOU HAVE A HISTORY OF MRSA? :NO DO YOU TAKE A BLOOD THINNERS? :NO DO YOU HAVE ANY BLEEDING DISORDERS? :NO ANY NEW NUMBNESS OR WEAKNESS IN YOUR LEGS OR ARMS? :NO ANY PACEMAKER,DEFIBRILLATOR, OR DORSAL COLUMN STIMULATOR? :NO DO YOU HAVE ANY RASHES OR OPEN SORES? :NO ARE YOU ALLERGIC TO IV DYE? :NO ARE YOU DIABETIC? :NO ANY NEW PROBLEMS WITH YOUR MEDICATIONS? :NO HAVE YOU RECEIVED A VACCINE IN THE PAST 30 DAYS? :NO DO YOU PLAN TO RECEIVE A VACCINE IN THE NEXT 21 DAYS? :NO DO YOU TAKE ANY IMMUNOSUPPRESSIVE MEDICATIONS? :NO ANY HISTORY OF SEIZURES? :NO ANY HISTORY OF CARDIAC ISSUES OR EVENTS? :NO DO YOU HAVE ANY KIDNEY OR LIVER DISEASE? :NO DO YOU HAVE SLEEP APNEA? :NO ANY RECENT HEAD INJURY? :NO DO YOU HAVE ANY NEW INFECTIONS? :NO IS THERE A CHANCE YOU COULD BE ? :NO ARE YOU BREAST FEEDING? :NO WHEN DID YOU LAST EAT? : 11/09/2020 0000 WHEN DID YOU LAST DRINK? : 11/09/2020 1100 WHAT DID YOU LAST DRINK? : WATER NAME OF PERSON DRIVING YOU HOME? : DAD DO YOU HAVE ANY OTHER QUESTIONS OR CONCERNS? : NO CURRENT MEDICATIONS TAKING GABAPENTIN 300 MG CAPSULE 1 CAPSULE ORALLY THREE TIMES A DAY, NOTES: 11/09/2020 0900 TAKING PAROXETINE HCL 30 MG TABLET 2 TABLET IN THE MORNING ORALLY ONCE A DAY, NOTES: 11/09/2020 0900 TAKING WELLBUTRIN 75MG ORALLY TWICE A DAY, NOTES: 11/09/2020 0900 TAKING ALBUTEROL SULFATE HFA 108 (90 BASE) MCG/ACT AEROSOL SOLUTION INHALE 2 PUFFS BY MOUTH EVERY 4 HOURS NEEDED INHALATION NOT-TAKING VITAMIN D (CHOLECALCIFEROL) 50 MCG (2000 UT) CAPSULE 1 CAPSULE ORALLY ONCE A DAY NOT-TAKING METHOCARBAMOL 500 MG TABLET TAKE ONE AND ONE HALF TABLETS BY MOUTH EVERY 6 HOURS ORAL MEDICATION LIST REVIEWED AND RECONCILED WITH THE PATIENT PAST MEDICAL HISTORY ASTHMA ANXIETY MIGRAINES CAUDA EQUINA SYNDROME RADICULOPATHY LUMBAR SACROILLITIS SECOND COVID 08/18/2020 ALLERGIES MEDICAL TAPE: RASH - SIDE EFFECTS TEGADERM: BLISTER - SIDE EFFECTS SOCIAL HISTORY GENERAL: TOBACCO USE ARE YOU A:CURRENT SMOKER ARE YOU INTERESTED IN QUITTING?READY TO QUIT PREVIOUS QUIT ATTEMPTS?YES, MORE THAN 6 MONTHS AGO. COUNSELED THE PATIENT ON TOBACCO USE, CESSATION [id number]/27/2021 HOW MANY CIGARETTES A DAY DO YOU SMOKE?6-10 HOW SOON AFTER YOU WAKE UP DO YOU SMOKE YOUR FIRST CIGARETTE?6-30 MIN HOW OFTEN DO YOU SMOKE CIGARETTES?EVERY DAY PATIENT COUNSELED ON THE DANGERS OF TOBACCO USE AND URGED TO QUIT:11/09/2020 LATEX QUESTIONNAIRE LATEX ALLERGY : HAVE YOU EVER DEVELOPED ANY TYPE OF REACTION AFTER HANDLING LATEX PRODUCTS SUCH RUBBER GLOVES, CONDOMS, DIAPHRAGMS, BALLOONS, SOCKS, OR UNDERWEAR?NO LATEX ALLERGY : HAVE YOU EVER DEVELOPED ANY TYPE OF REACTION DURING OR AFTER DENTAL APPOINTMENT, VAGINAL/RECTAL EXAMINATION, SURGICAL PROCEDURE, OR ANY OTHER EXPOSURE?NO LATEX RISK : HAVE YOU EVER HAD ANY DIFFICULTY BREATHING OR HIVES AFTER EATING OR HANDLING ANY FRUITS, OR VEGETABLES; SUCH KIWI, BANANAS, STONE FRUITS, OR CHESTNUTSNO LATEX RISK : DO YOU HAVE A PREVIOUS PERSONAL HISTORY OF MORE THAN NINE SURGERIES, SPINA BIFIDA, OR REPEATED CATHERIZATIONS? NO LATEX RISK : ARE YOU FREQUENTLY EXPOSED TO LATEX PRODUCTS IN YOUR OCCUPATION?NO DATE ASKED : 11/09/2020 ALCOHOL USE: OCCASIONAL- ONCE A MONTH. RECREATIONAL DRUG USE DRUG USE?NO LANGUAGE LANGUAGES SPOKEN:[place] EDUCATION LEVEL OF EDUCATION:GRADUATE LEARNING BARRIERS / SPECIAL NEEDS BARRIERS TO LEARNING?NO HEARING IMPAIRED?NO VISION IMPAIRED?YES CONTACT LENSES COGNITIVELY IMPAIRED?NO READINESS TO LEARN?YES LEARNING PREFERENCES?NO LEARNING CAPABILITIES PRESENT?NO EMOTIONAL BARRIERS?YES ANXIETY SPECIAL DEVICES?NO CLIENT ACCOUNT ASSISTANT NEEDED?NO DOMESTIC VIOLENCE DO YOU FEEL SAFE IN YOUR ENVIRONMENT?YES VITAL SIGNS WT 158.0 LBS, WT-KG 71.67 KG, HT 53 IN, BMI 39.54 INDEX, BP 125/71 MM HG, HR 77 /MIN, RR 18 /MIN, TEMP 98.6 F, OXYGEN SAT % 95%, SAFE IN ENV? (Y/N) YES, NA INITIALS AW 1323, REVIEWED BY: Deny GLASS RN. EXAMINATION GENERAL: THE PATIENT IS ALERT, ORIENTED TIMES THREE AND COOPERATIVE. LUNGS ARE CLEAR TO AUSCULTATION. HEART SHOWS REGULAR RHYTHM, NO MURMURS AND NO GALLOPS. ASSESSMENTS SACROILIITIS, NOT ELSEWHERE CLASSIFIED - M46.1 (PRIMARY) TREATMENT SACROILIITIS, NOT ELSEWHERE CLASSIFIED [facility] FLUORO GUIDANCE (PAIN)[id number] SALINE LOCK (ORDER CANCELLED)[id number] PROCEDURES PAIN NURSING RECORD PROCEDURE IN ROOM 1600, PHYSICIAN IN ROOM 1632, START 1639, FINISH 1640, PHYSICIAN OUT OF ROOM 1645, OUT OF ROOM 1650, ECG NORMAL SINUS, PATIENT SHIELDED NO, SAFETY STRAP YES, PREP CHLOROPREP Katherin GUEVARA RN, DRESSING OTHER DR. FERGUSON LOC: 1. ALERT, ORIENTED, TANNA GUEVARA 11/09/2020 4:10:52 PM > RESP: 1. REGULAR, NO DYSPNEA, TANNA GUEVARA 11/09/2020 4:10:59 PM > COLOR: 1. PINK[place]A TOM 11/09/2020 4:11:05 PM > SKIN: 1. WARM, DRY, TANNA GUEVARA 11/09/2020 4:11:11 PM > POSITION: 1. [place]A TOM 11/09/2020 4:11:27 PM > VITALS: BASIL HUNTLEY 11/09/2020 3:07:02 PM > HR 61 02 96% BP 112/60 BASIL HUNTLEY 11/09/2020 3:16:26 PM > HR 76 02 99% BP 116/69 BASIL HUNTLEY 11/09/2020 3:31:52 PM > HR 67 02 98% BP 118/72 BASIL HUNTLEY 11/09/2020 3:44:49 PM > HR 62 02 97% BP 122/74 1630- HR 62, 118/77, 97%, R14 TBRADLEYRN 1645- HR 60, 116/71, 96%, R14 TBRADPENELOPERN EXIT VITALS 1655- HR 58, 116/72, 97%, R14, PAIN 1/10 BRIONNA CONN NOTES Katherin GUEVARA RN COMPLETION OF PROCEDURE APPOINTMENT: POST PAIN 1, DRESSING SITE DRY AND INTACT, IV N/A, GAIT STEADY, TEACHING COMPLETED, PATIENT ACKNOWLEDGES UNDERSTANDING YES, PROCEDURE APPOINTMENT COMPLETED AT 1659 : FLOURO TIME WAS 26 SECONDS PRE PROCEDURE DIAGNOSIS SACROILITIS, SACROILIAC JOINT DYSFUNCTION POST PROCEDURE DIAGNOSIS SACROILIITIS, SACROILIAC JOINT DYSFUNCTION PROCEDURE RIGHT SACROILIAC JOINT BLOCK SURGEON DR. JEAN CARLOS FERGUSON MINERAL SURVEYOR NONE ANESTHESIA LOCAL PRE PROCEDURE NOTE THE PATIENT HAS A HISTORY OF CHRONIC LOW BACK PAIN. I EVALUATED THE PATIENT AND REVIEWED THE CHART. I WENT OVER THE RISKS, BENEFITS AND ALTERNATIVES ASSOCIATED WITH THIS PROCEDURE. THE PATIENT WOULD LIKE TO PROCEED AND GIVES CONSENT TO PERFORM THE PROCEDURE. THE PATIENT DENIES UNEXPLAINABLE WEIGHT LOSS, FEVER, CHILLS OR NEW CHANGES IN URINARY OR BOWEL CONTROL. THE PATIENT IS COVID-19 NEGATIVE. DESCRIPTION OF PROCEDURE THE PATIENT WAS BROUGHT TO THE PROCEDURE ROOM AND PLACED IN THE PRONE POSITION. THE LUMBOSACRAL AREA WAS CLEANED WITH CHLORAPREP SOLUTION AND DRAPED ASEPTICALLY. THE PROCEDURE WAS DONE UNDER STERILE CONDITIONS. A TIMEOUT WAS PERFORMED WHERE THE CONSENTED SITE WAS VERIFIED WITH EVERYONE IN THE ROOM UNDER FLUOROSCOPIC GUIDANCE, THE TARGET POINT WAS SELECTED AT THE LOWER BORDER OF THE RIGHT SACROILIAC JOINT. TARGET POINT WAS SELECTED AFTER MEDIAL ROTATION AND TILT OF THE MAGNIFIER OR THE C-ARM. I CONFIRMED AGAIN THE SITE OF TARGET. LIDOCAINE 0.5% WAS USED TO NUMB THE SKIN AND THE SUBCUTANEOUS TISSUE BELOW IT. SPINAL NEEDLE, 22-GAUGE, WAS ADVANCED UNDER FLUOROSCOPIC GUIDANCE AND FOLLOWING PATIENT FEEDBACK UNTIL THE TARGET WAS TOUCHED. THE POSITION OF THE NEEDLE WAS VERIFIED WITH AP AND OBLIQUE VIEWS. AFTER PROPER POSITION OF THE NEEDLE WAS ACHIEVED, ISOVUE-M DYE 30%, 0.1 ML, WAS INJECTED SHOWING ADEQUATE SPREAD OF THE DYE. KENALOG 40 MG WAS INJECTED. THEN, A SOLUTION OF 3.0 ML OF BUPIVACAINE 0.125% WAS USED TO FLUSH THE NEEDLE. THE MEDICATIONS WERE VERIFIED WITH THE NURSE. THERE WAS NO EVIDENCE OF BLOOD, PARESTHESIA OR CEREBROSPINAL FLUID DURING THE PROCEDURE. THE PATIENT WAS SENT TO THE RECOVERY ROOM. THE PATIENT WAS MOVING THE EXTREMITIES AND DOING WELL. THERE WERE NO COMPLICATIONS DURING THE PROCEDURE. ESTIMATED BLOOD LOSS WAS LESS THAN 5 ML. FLUOROSCOPIC TIME WAS 26 SECONDS. POST PROCEDURE NOTE THE PATIENT WILL BE SEEN IN A FOLLOW UP IN THE NEXT FEW WEEKS. I AM LOOKING FOR LONG LASTING RELIEF FOR THE PATIENT WITH THIS INTERVENTION. INSTRUCTIONS WERE GIVEN, QUESTIONS WERE ANSWERED AND THE PATIENT EXPRESSED UNDERSTANDING AND AGREES WITH THE PAIN. I, YOUNG CAMPBELL, DOCUMENTED THE ABOVE INFORMATION ACTING A SCRIBE FOR DR. FERGUSON. I HAVE REVIEWED THE ABOVE DOCUMENT WRITTEN BY YOUNG CAMPBELL, CLIENT ACCOUNT ASSISTANT, AND I VERIFY THAT IT IS ACCURATE. VISIT CODES PROCEDURE CODES 79627 INJECT SACROILIAC JOINT, MODIFIERS: RT DISPOSITION & COMMUNICATION FOLLOW UP FOLLOW UP WITH [employer] SALES REPRESENTATIVE (REASON: POST RIGHT SACROILIAC JOINT BLOCK) ELECTRONICALLY SIGNED BY JEAN CARLOS FERGUSON MD, MD ON 11/12/2020 AT 02:10 PM EDT DISCLAIMER : THIS IS A VISIT SUMMARY EXTRACTED FROM THE [employer] CHART. IT IS NOT A COPY OF THE [employer] PROGRESS NOTE. AKANKSHA
== END ==
LOC: M PAIN 13:20
PROVIDERS: ATTEND Anesthesiology
DX: M46.1 Sacroiliitis, not elsewhere classified (principal); J45.909 Unspecified asthma, uncomplicated; G43.909 Migraine, unspecified, not intractable, without status migrainosus; F17.210 Nicotine dependence, cigarettes, uncomplicated; Z86.59 Personal history of other mental and behavioral disorders; Z91.09 Other allergy status, other than to drugs and biological substances; Z79.899 Other long term (current) drug therapy
CPT/HCPCS: 27096; J3301; Q9967

== ENCOUNTER → 2021-02-09 | Outpatient (CLI) | payer OTHER ==
[~2021-02-09] MED LIST changes: -BUPIVACAINE HCL 0.25% 30ML VIAL As Ordered ONE; +DOXY-443 PO; -DOXY1CAP62 PO; -ISOVUE-M 300 61% 15ML VIAL As Ordered ONE; -LIDOCAINE 1% SDV 30ML VIAL As Ordered ONE; -TRIAMCINOLONE ACETONIDE SUSP 40 MG/ML VIAL (J3301) As Ordered ONE; -diazePAM 5MG TABLET As Ordered ONE; -diphenhydrAMINE 25MG CAP As Ordered ONE; -oxyCODONE 5MG TAB As Ordered ONE
== END ==
LOC: M PAIN 10:30
PROVIDERS: ATTEND Anesthesiology
DX: G89.29 Other chronic pain (principal); M96.1 Postlaminectomy syndrome, not elsewhere classified; M54.16 Radiculopathy, lumbar region; J45.909 Unspecified asthma, uncomplicated; F41.9 Anxiety disorder, unspecified; G43.909 Migraine, unspecified, not intractable, without status migrainosus; F17.210 Nicotine dependence, cigarettes, uncomplicated; Z79.899 Other long term (current) drug therapy; Z91.013 Allergy to seafood; Z88.8 Allergy status to other drugs, medicaments and biological substances; Z91.048 Other nonmedicinal substance allergy status

== ENCOUNTER → 2021-03-17 | Outpatient (CLI) | payer OTHER | LOC: M LABSMTC 10:49 | PROVIDERS: ATTEND Anesthesiology | DX: Z11.52 Encounter for screening for COVID-19 (principal) ==

== ENCOUNTER → 2021-03-22 | Outpatient (CLI) | payer OTHER ==
[~2021-03-22] MED LIST changes: +ISOVUE-M 300 61% 15ML VIAL As Ordered ONE; +LIDOCAINE 1% SDV 30ML VIAL As Ordered ONE; +diazePAM 5MG TABLET As Ordered ONE; +diphenhydrAMINE 25MG CAP As Ordered ONE; +methylPREDNISolone SUSP 40MG/ML 1ML VIAL (DEPO MEDROL) As Ordered ONE; +oxyCODONE 5MG TAB As Ordered ONE
--- NOTE | 2021-03-22 17:38 | REP ---
INDICATION: LUMBAR EPIDURAL STEROID INJECTION VERSUS CAUDAL STEROID INJ. COMPARISON: None. TECHNIQUE: Three intraoperative C-arm images FINDINGS: The imaging reveals lumbar anatomy, needle placement and contrast injection IMPRESSION: Imaging suggestive of lumbar epidural steroid injection 10 seconds fluoroscopy time utilized. <Electronically signed by Sheri Duran > 03/22/21 1418 <Electronically signed by Tu Chen > 03/22/21 7637
== END ==
LOC: M PAIN 11:00
PROVIDERS: ATTEND Anesthesiology
DX: M51.16 Intervertebral disc disorders with radiculopathy, lumbar region (principal); J45.909 Unspecified asthma, uncomplicated; F41.9 Anxiety disorder, unspecified; G43.909 Migraine, unspecified, not intractable, without status migrainosus; G83.4 Cauda equina syndrome; F17.210 Nicotine dependence, cigarettes, uncomplicated; Z79.899 Other long term (current) drug therapy; Z88.8 Allergy status to other drugs, medicaments and biological substances; Z91.013 Allergy to seafood; Z91.048 Other nonmedicinal substance allergy status
CPT/HCPCS: 62323; J1030; Q9967

== ENCOUNTER → 2021-05-11 | Outpatient (CLI) | payer OTHER ==
[~2021-05-11] MED LIST changes: -ISOVUE-M 300 61% 15ML VIAL As Ordered ONE; -LIDOCAINE 1% SDV 30ML VIAL As Ordered ONE; -diazePAM 5MG TABLET As Ordered ONE; -diphenhydrAMINE 25MG CAP As Ordered ONE; -methylPREDNISolone SUSP 40MG/ML 1ML VIAL (DEPO MEDROL) As Ordered ONE; -oxyCODONE 5MG TAB As Ordered ONE
== END ==
LOC: M PAIN 11:00
PROVIDERS: ATTEND Nurse Practitioner Family
DX: M51.16 Intervertebral disc disorders with radiculopathy, lumbar region (principal); M96.1 Postlaminectomy syndrome, not elsewhere classified; J45.909 Unspecified asthma, uncomplicated; G43.909 Migraine, unspecified, not intractable, without status migrainosus; F17.210 Nicotine dependence, cigarettes, uncomplicated; Z86.59 Personal history of other mental and behavioral disorders; Z91.013 Allergy to seafood; Z91.09 Other allergy status, other than to drugs and biological substances; Z79.899 Other long term (current) drug therapy

== ENCOUNTER → 2021-08-09 | Outpatient (CLI) | payer OTHER | LOC: M PAIN 11:30 | PROVIDERS: ATTEND Nurse Practitioner Family | DX: M51.16 Intervertebral disc disorders with radiculopathy, lumbar region (principal); M96.1 Postlaminectomy syndrome, not elsewhere classified; J45.909 Unspecified asthma, uncomplicated; G43.909 Migraine, unspecified, not intractable, without status migrainosus; F17.210 Nicotine dependence, cigarettes, uncomplicated; Z86.59 Personal history of other mental and behavioral disorders; Z91.013 Allergy to seafood; Z91.09 Other allergy status, other than to drugs and biological substances; Z79.899 Other long term (current) drug therapy ==

== ENCOUNTER → 2021-09-14 | Outpatient (CLI) | payer OTHER | LOC: M WHC 07:17 | PROVIDERS: ATTEND Nurse Practitioner Family | DX: N63.15 Unspecified lump in the right breast, overlapping quadrants (principal) | CPT/HCPCS: 76642; 77066; G0279 ==

== ENCOUNTER → 2021-12-13 | Outpatient (CLI) | payer OTHER | LOC: M PLAIMG 10:17 | PROVIDERS: ATTEND Internal Medicine Hematology & Oncology | DX: Z80.3 Family history of malignant neoplasm of breast (principal) ==

== ENCOUNTER → 2022-02-13 | Outpatient (CLI) | payer OTHER | LOC: M LABSMTC 11:13 | PROVIDERS: ATTEND Anesthesiology | DX: Z01.812 Encounter for preprocedural laboratory examination (principal); Z11.52 Encounter for screening for COVID-19 ==

== ENCOUNTER → 2022-03-22 | Outpatient (CLI) | payer OTHER ==
[~2022-03-22] MED LIST changes: +ISOVUE-M 300 61% 15ML VIAL As Ordered ONE; +LIDOCAINE 1% SDV 30ML VIAL As Ordered ONE; +diazePAM 5MG TABLET As Ordered ONE; +diphenhydrAMINE 25MG CAP As Ordered ONE; +methylPREDNISolone SUSP 40MG/ML 1ML VIAL (DEPO MEDROL) As Ordered ONE; +oxyCODONE 5MG TAB As Ordered ONE
== END ==
LOC: M PAIN 13:30
PROVIDERS: ATTEND Anesthesiology
DX: M51.16 Intervertebral disc disorders with radiculopathy, lumbar region (principal); G89.29 Other chronic pain; J45.909 Unspecified asthma, uncomplicated; G43.909 Migraine, unspecified, not intractable, without status migrainosus; F17.210 Nicotine dependence, cigarettes, uncomplicated; Z86.59 Personal history of other mental and behavioral disorders; Z91.013 Allergy to seafood; Z91.09 Other allergy status, other than to drugs and biological substances; Z79.899 Other long term (current) drug therapy
CPT/HCPCS: 62323; J1030

== ENCOUNTER → 2022-03-22 | Outpatient (CLI) | payer OTHER ==
[~2022-03-22] MED LIST changes: -ISOVUE-M 300 61% 15ML VIAL As Ordered ONE; -LIDOCAINE 1% SDV 30ML VIAL As Ordered ONE; -diazePAM 5MG TABLET As Ordered ONE; -diphenhydrAMINE 25MG CAP As Ordered ONE; -methylPREDNISolone SUSP 40MG/ML 1ML VIAL (DEPO MEDROL) As Ordered ONE; -oxyCODONE 5MG TAB As Ordered ONE
== END ==
LOC: M LABSMTC 11:30
PROVIDERS: ATTEND Anesthesiology
DX: Z11.52 Encounter for screening for COVID-19 (principal)

== ENCOUNTER → 2022-04-24 | Outpatient (CLI) | payer OTHER | LOC: M PAIN 10:15 | PROVIDERS: ATTEND Nurse Practitioner Family | DX: M51.16 Intervertebral disc disorders with radiculopathy, lumbar region (principal); G89.29 Other chronic pain; J45.909 Unspecified asthma, uncomplicated; G43.909 Migraine, unspecified, not intractable, without status migrainosus; F17.210 Nicotine dependence, cigarettes, uncomplicated; Z86.59 Personal history of other mental and behavioral disorders; Z91.013 Allergy to seafood; Z91.09 Other allergy status, other than to drugs and biological substances; Z79.899 Other long term (current) drug therapy ==

== ENCOUNTER → 2022-05-29 | Outpatient (CLI) | payer OTHER | LOC: M PAIN 11:00 | PROVIDERS: ATTEND Nurse Practitioner Family | DX: M96.1 Postlaminectomy syndrome, not elsewhere classified (principal); G89.29 Other chronic pain; J45.909 Unspecified asthma, uncomplicated; G43.909 Migraine, unspecified, not intractable, without status migrainosus; F17.210 Nicotine dependence, cigarettes, uncomplicated; Z86.59 Personal history of other mental and behavioral disorders; Z91.013 Allergy to seafood; Z91.09 Other allergy status, other than to drugs and biological substances; Z79.899 Other long term (current) drug therapy ==

== ENCOUNTER → 2022-06-27 | Outpatient (CLI) | payer OTHER | LOC: M LABSMTC 11:06 | PROVIDERS: ATTEND Anesthesiology | DX: Z01.818 Encounter for other preprocedural examination (principal); Z11.52 Encounter for screening for COVID-19 ==

== ENCOUNTER → 2022-06-30 | Outpatient (CLI) | payer OTHER ==
[~2022-06-30] MED LIST changes: +BUPIVACAINE HCL 0.25% 30ML VIAL As Ordered ONE; +ISOVUE-M 300 61% 15ML VIAL As Ordered ONE; +LIDOCAINE 1% SDV 30ML VIAL As Ordered ONE; +diazePAM 5MG TABLET As Ordered ONE; +diphenhydrAMINE 25MG CAP As Ordered ONE; +oxyCODONE 5MG TAB As Ordered ONE
== END ==
LOC: M PAIN 11:00
PROVIDERS: ATTEND Anesthesiology
DX: M51.16 Intervertebral disc disorders with radiculopathy, lumbar region (principal); J45.909 Unspecified asthma, uncomplicated; F41.9 Anxiety disorder, unspecified; G43.909 Migraine, unspecified, not intractable, without status migrainosus; F17.210 Nicotine dependence, cigarettes, uncomplicated; Z79.899 Other long term (current) drug therapy; Z91.048 Other nonmedicinal substance allergy status; Z91.013 Allergy to seafood
CPT/HCPCS: 64483; J1100; Q9967; S0020

== ENCOUNTER → 2022-08-08 | Outpatient (CLI) | payer OTHER ==
[~2022-08-08] MED LIST changes: -BUPIVACAINE HCL 0.25% 30ML VIAL As Ordered ONE; -ISOVUE-M 300 61% 15ML VIAL As Ordered ONE; -LIDOCAINE 1% SDV 30ML VIAL As Ordered ONE; -diazePAM 5MG TABLET As Ordered ONE; -diphenhydrAMINE 25MG CAP As Ordered ONE; -oxyCODONE 5MG TAB As Ordered ONE
== END ==
LOC: M PAIN 15:00
PROVIDERS: ATTEND Anesthesiology
DX: G89.29 Other chronic pain (principal); M96.1 Postlaminectomy syndrome, not elsewhere classified; J45.909 Unspecified asthma, uncomplicated; F41.9 Anxiety disorder, unspecified; G43.909 Migraine, unspecified, not intractable, without status migrainosus; M54.16 Radiculopathy, lumbar region; Z79.899 Other long term (current) drug therapy; F17.210 Nicotine dependence, cigarettes, uncomplicated; Z88.8 Allergy status to other drugs, medicaments and biological substances; Z91.013 Allergy to seafood; Z91.048 Other nonmedicinal substance allergy status

== ENCOUNTER → 2022-10-11 | Outpatient (CLI) | payer OTHER | LOC: M PAIN 10:45 | PROVIDERS: ATTEND Anesthesiology | DX: M51.16 Intervertebral disc disorders with radiculopathy, lumbar region (principal); M96.1 Postlaminectomy syndrome, not elsewhere classified; M46.1 Sacroiliitis, not elsewhere classified; M25.569 Pain in unspecified knee; J45.909 Unspecified asthma, uncomplicated; F41.9 Anxiety disorder, unspecified; G43.909 Migraine, unspecified, not intractable, without status migrainosus; G83.4 Cauda equina syndrome; F17.210 Nicotine dependence, cigarettes, uncomplicated; Z88.8 Allergy status to other drugs, medicaments and biological substances; Z91.013 Allergy to seafood; Z91.048 Other nonmedicinal substance allergy status ==

== ENCOUNTER → 2022-10-31 | Outpatient (CLI) | payer OTHER | LOC: M PAIN 13:45 | PROVIDERS: ATTEND Anesthesiology | DX: M53.3 Sacrococcygeal disorders, not elsewhere classified (principal); M51.16 Intervertebral disc disorders with radiculopathy, lumbar region; M96.1 Postlaminectomy syndrome, not elsewhere classified; J45.909 Unspecified asthma, uncomplicated; G43.909 Migraine, unspecified, not intractable, without status migrainosus; F17.210 Nicotine dependence, cigarettes, uncomplicated; Z86.59 Personal history of other mental and behavioral disorders; Z91.013 Allergy to seafood; Z91.09 Other allergy status, other than to drugs and biological substances; Z79.899 Other long term (current) drug therapy | CPT/HCPCS: 76000; G0463 ==

== ENCOUNTER → 2023-02-08 | Outpatient (CLI) | payer OTHER | LOC: M PAIN 14:30 | PROVIDERS: ATTEND Nurse Practitioner Family | DX: M46.1 Sacroiliitis, not elsewhere classified (principal); G89.29 Other chronic pain; J45.909 Unspecified asthma, uncomplicated; F41.9 Anxiety disorder, unspecified; G43.909 Migraine, unspecified, not intractable, without status migrainosus; M54.16 Radiculopathy, lumbar region; F17.210 Nicotine dependence, cigarettes, uncomplicated; Z79.899 Other long term (current) drug therapy; Z91.013 Allergy to seafood; Z91.048 Other nonmedicinal substance allergy status ==

== ENCOUNTER → 2023-03-16 | Outpatient (CLI) | payer OTHER ==
[~2023-03-16] MED LIST changes: +ISOVUE-M 300 61% 15ML VIAL As Ordered ONE; +LIDOCAINE 1% SDV 30ML VIAL As Ordered ONE; +TRIAMCINOLONE ACETONIDE SUSP 40MG/ML 1ML VIAL As Ordered ONE; +diazePAM 5MG TABLET As Ordered ONE; +diphenhydrAMINE 25MG CAP As Ordered ONE; +oxyCODONE 5MG TAB As Ordered ONE
== END ==
LOC: M PAIN 08:30
PROVIDERS: ATTEND Anesthesiology
DX: M46.1 Sacroiliitis, not elsewhere classified (principal); G89.29 Other chronic pain; F17.210 Nicotine dependence, cigarettes, uncomplicated; Z91.013 Allergy to seafood; Z91.09 Other allergy status, other than to drugs and biological substances; Z79.899 Other long term (current) drug therapy
CPT/HCPCS: 27096; J0665; J3301; Q9967

== ENCOUNTER → 2023-04-17 | Outpatient (CLI) | payer OTHER ==
[~2023-04-17] MED LIST changes: -ISOVUE-M 300 61% 15ML VIAL As Ordered ONE; -LIDOCAINE 1% SDV 30ML VIAL As Ordered ONE; -TRIAMCINOLONE ACETONIDE SUSP 40MG/ML 1ML VIAL As Ordered ONE; -diazePAM 5MG TABLET As Ordered ONE; -diphenhydrAMINE 25MG CAP As Ordered ONE; -oxyCODONE 5MG TAB As Ordered ONE
== END ==
LOC: M TMPAIN 10:00 → M PAIN 10:00
PROVIDERS: ATTEND Nurse Practitioner Family
DX: M46.1 Sacroiliitis, not elsewhere classified (principal); M51.16 Intervertebral disc disorders with radiculopathy, lumbar region; M96.1 Postlaminectomy syndrome, not elsewhere classified; G89.29 Other chronic pain; J45.909 Unspecified asthma, uncomplicated; F41.9 Anxiety disorder, unspecified; G43.909 Migraine, unspecified, not intractable, without status migrainosus; G83.4 Cauda equina syndrome; F17.210 Nicotine dependence, cigarettes, uncomplicated; Z79.899 Other long term (current) drug therapy; Z91.013 Allergy to seafood; Z91.048 Other nonmedicinal substance allergy status

== ENCOUNTER → 2023-05-10 | Outpatient (CLI) | payer OTHER | LOC: M PAIN 09:45 | PROVIDERS: ATTEND Nurse Practitioner Family | DX: M96.1 Postlaminectomy syndrome, not elsewhere classified (principal); G89.29 Other chronic pain; J45.909 Unspecified asthma, uncomplicated; F41.9 Anxiety disorder, unspecified; G43.909 Migraine, unspecified, not intractable, without status migrainosus; M54.16 Radiculopathy, lumbar region; M46.1 Sacroiliitis, not elsewhere classified; G83.4 Cauda equina syndrome; F17.210 Nicotine dependence, cigarettes, uncomplicated; Z79.899 Other long term (current) drug therapy; Z91.048 Other nonmedicinal substance allergy status; Z91.013 Allergy to seafood ==

== ENCOUNTER → 2023-06-22 | Outpatient (CLI) | payer OTHER | LOC: M RAD 10:18 | PROVIDERS: ATTEND Nurse Practitioner Family | DX: R06.02 Shortness of breath (principal) ==

== ENCOUNTER → 2023-07-05 | Outpatient (REF) | payer OTHER | LOC: M LABDRWAD 12:46 → M LAB REF 12:46 | PROVIDERS: ATTEND Nurse Practitioner Family | DX: R06.02 Shortness of breath (principal) ==

== ENCOUNTER → 2024-12-16 | Outpatient (CLI) | payer OTHER ==
[~2024-12-16] MED LIST changes: +DOXY-441 PO; -DOXY-443 PO; +GABA-1172 PO; -GABA-282 PO
== END ==
LOC: M PLAIMG 10:02
PROVIDERS: ATTEND Physician Assistant
DX: R91.8 Other nonspecific abnormal finding of lung field (principal); J98.09 Other diseases of bronchus, not elsewhere classified